=== PATIENT | male | born 1945 | race Caucasian/White ===

== ENCOUNTER 2017-11-12 12:49 | Emergency (ER) | payer MEDICARE, OTHER ==
[~2017-11-12] VITALS: Ht 170.2 cm; Wt 92.5 kg
--- NOTE | 2017-11-12 14:03 | Diagnostic Imaging Report ---
PATIENT HISTORY: Right wrist pain after injury one week ago. Pain in the radial aspect. TECHNIQUE: Three views of the right wrist. COMPARISON: None. FINDINGS: No acute fracture or dislocation is seen in the right wrist. There are moderate degenerative changes at the basal joints of the thumb. A well-corticated ossification is seen distal to the ulnar styloid process, may be from remote trauma. There is 4 mm of positive ulnar variance, otherwise alignment appears normal. Calcific atherosclerosis is noted. IMPRESSION: Chronic findings in the right wrist as described above with no acute osseous abnormality seen. Dictated by: Dictated on workstation # [id number]
--- NOTE | 2017-11-12 14:21 | ED Upper Extremity ---
General Chief Complaint: Upper Extremity Stated Complaint: RT WRIST INJ Nursing Triage Note: ARRIVED VIA AMB TO ROOM 07. COMPLAINS OF RIGHT WRIST PAIN AFTER MOWING LAST WEEK AND A SWING COMING BACK AND HITTING HIM IN THE WRIST. Nursing Sepsis Screen: No Definite Risk History of Present Illness Date Seen by Provider: Nov 12, 2017 Time Seen by Provider: 13:10 Initial Comments 72-year-old male reports that his right wrist was injured a week and a half ago while mowing. He pushed a swing out of the way and it came back and hit him in the right wrist on the volar side. He has intermittent pain in the right wrist and loss of full range of motion to his wrist and hand. He's had no treatment since the injury. He denies any previous history of problems with his right wrist. He is right-hand dominant. Onset: last week Pain/Injury Location: right wrist Method of Injury: direct blow Allergies and Home Medications Patient Home Medication List Home Medication List Reviewed: Yes Constitutional: no symptoms reported, see HPI Musculoskeletal: see HPI, joint pain (right wrist), joint swelling Past Cralomv-Oycghc-Xruqrj Hx Past Med/Social Hx: Reviewed Nursing Past Med/Soc Hx Patient Social History Recent Foreign Travel: No Contact w/Someone Who Travel: No Recent Infectious Disease Expo: No Recent Hopitalizations: No Past Medical History Orthopedic Respiratory: No Cardiac: Yes Heart Attack, Hypertension Neurological: No Genitourinary: Yes Kidney Stones Gastrointestinal: No Musculoskeletal: No Endocrine: No HEENT: No Cancer: No Psychosocial: No Integumentary: No Physical Exam Vital Signs Vital Signs - First Documented 11/12/17 13:05 Temp 98.0 Pulse 80 Resp 16 B/P (MAP) 133/68 (89) Pulse Ox 100 O2 Delivery Room Air Capillary Refill : Less Than 3 Seconds General Appearance: WD/WN, no apparent distress Neck: non-tender, full range of motion, supple, normal inspection Cardiovascular: normal peripheral pulses, regular rate, rhythm Respiratory: chest non-tender, lungs clear, normal breath sounds Wrist: Yes normal inspection, Yes bone tenderness (distal radius), Yes limited ROM (secondary to pain), Yes pain (right wrist), Yes soft tissue tenderness ( right wrist) Neurologic/Psychiatric: no motor/sensory deficits, alert, normal mood/affect, oriented x 3 Progress/Results/Core Measures Results/Orders My Orders Orders - CHILO CHENEY Wrist, Right, 3 Views Or More (11/12/17 13:21) Vital Signs/I&O 11/12/17 11/12/17 13:05 14:25 Temp 98.0 98.0 Pulse 80 80 Resp 16 16 B/P (MAP) 133/68 (89) 133/68 (89) Pulse Ox 100 100 O2 Delivery Room Air Blood Pressure Mean: 89 Progress Progress Note : Time: 13:10 Progress Note Initial evaluation completed, we'll obtain x-ray of the right wrist and then reevaluate. 1420 no fracture or dislocation appreciated. 4 inch Yazan wrap applied. Discharge instructions and return precautions reviewed. Diagnostic Imaging Diagonstic Imaging: Xray Plain Films/CT/US/NM/MRI: other (right wrist) Comments NAME: MALI MACHADO [facility] REC#: [id number] PT STATUS: REG ER : 1945 PHYSICIAN: CHILO CHENEY ADMIT DATE: 11/12/17/ER Draft Date of Exam:11/12/17 WRIST, RIGHT, 3 VIEWS OR MORE PATIENT HISTORY: Right wrist pain after injury one week ago. Pain in the radial aspect. TECHNIQUE: Three views of the right wrist. COMPARISON: None. FINDINGS: No acute fracture or dislocation is seen in the right wrist. There are moderate degenerative changes at the basal joints of the thumb. A well-corticated ossification is seen distal to the ulnar styloid process, may be from remote trauma. There is 4 mm of positive ulnar variance, otherwise alignment appears normal. Calcific atherosclerosis is noted. IMPRESSION: Chronic findings in the right wrist as described above with no acute osseous abnormality seen. Dictated on workstation # [id number] Dict: 11/12/17 1357 Trans: 11/12/17 1403 DEV [id number] Interpreted by: ELIDA ALTMAN MD Electronically signed by: Reviewed: Reviewed by Me Departure Impression Primary Impression: Contusion of right wrist Qualified Codes: S60.211A - Contusion of right wrist, initial encounter Disposition: 01 HOME, SELF-CARE Condition: Improved Departure-Patient Inst. Decision time for Depature: 14:20 Referrals: DIAZ BAEZ DO (PCP/Family) Primary Care Physician Patient Instructions: Contusion (DC), Wrist Sprain (DC) Add. Discharge Instructions: Ice to right wrist 20 minutes every 2 hours while awake. Gentle range of motion to the right wrist. Tylenol 650 mg every 6 hours as needed for pain. Follow-up with your primary care provider if symptoms are not improving or worsen in the next week. Return to the emergency department for new, urgent health care needs. All discharge instructions reviewed with patient and/or family. Voiced understanding. Copy Copies To 1: DIAZ BAEZ AMY ARNP Nov 12, 2017 14:21
[2017-11-12 14:25] VITALS: BP 133/68
== END 2017-11-12 14:25 | disposition home or self-care (01) ==
LOC: ER 12:53
DX: S60.211A Contusion of right wrist, initial encounter (principal); I25.2 Old myocardial infarction; I10 Essential (primary) hypertension; Z87.442 Personal history of urinary calculi; W22.09XA Striking against other stationary object, initial encounter
CPT/HCPCS: 73110

== ENCOUNTER 2018-09-29 08:43 | Emergency (ER) | payer MEDICARE, OTHER ==
[~2018-09-29] VITALS: Ht 170.2 cm; Wt 90.7 kg
[2018-09-29] MEDS ORDERED: GLIP5TAB13 (09:36)
[2018-09-29] MEDS ORDERED: AMLO5TAB9 (09:36)
[2018-09-29] MEDS ORDERED: PIOG45TA65 (09:36)
[2018-09-29] MEDS ORDERED: MAGN250T35 (09:36)
[2018-09-29] MEDS ORDERED: OXYC-471 (09:36)
[2018-09-29] MEDS ORDERED: LISI-552 (09:36)
--- OUTSIDE RECORDS SUMMARY | 2018-09-29 10:04 | XMS REPORT | Continuity of Care Document ---
Author Organization Unknown Address Unknown Allergies There is no data. Medications There is no data. Problems There is no data. Procedures There is no data. Results There is no data. Encounters ACCT No. Visit Date/Time Discharge Status Pt. Type Provider Facility Loc./Unit Complaint [id number] 09/13/2018 13:09:45 09/13/2018 23:59:59 CLS Outpatient
--- NOTE | 2018-09-29 10:19 | NUR ---
FAMILY TO DESK WONDERING HOW MUCH LONGER INFORMED THAT ED IS BUSY AND DR WOULD BE WITH THEM LETICIA.
--- NOTE | 2018-09-29 11:07 | ED Lower Extremity ---
General Chief Complaint: Lower Extremity Stated Complaint: R FOOT PAIN Nursing Triage Note: C/O PAIN IN R ANKLE TRIPPED OVER DOG STAIRS ON SAT. Nursing Sepsis Screen: No Definite Risk Source: patient Exam Limitations: no limitations History of Present Illness Date Seen by Provider: September 29, 2018 Time Seen by Provider: 11:07 Initial Comments 73-year-old male who presents to the emergency room with complaints of right ankle pain after tripping over his dog stairs causing his ankle to twist 5 days ago. He reports pain with ambulation. He does have mild ecchymosis to the right ankle. No swelling. Pain/Injury Location: right ankle Method of Injury: fell Modifying Factors: Worse With Movement Allergies and Home Medications Allergies Coded Allergies: cephalexin (Verified Allergy, Unknown, 09/29/18) Patient Home Medication List Home Medication List Reviewed: Yes Review of Systems Constitutional: see HPI; No chills, No fever Musculoskeletal: see HPI, joint pain (right ankle), joint swelling (right ankle ) All Other Systems Reviewed Negative Unless Noted: Yes Past Fxstpzw-Ogwkli-Lkowxd Hx Past Med/Social Hx: Reviewed Nursing Past Med/Soc Hx Patient Social History Alcohol Use: Occasionally Uses Recreational Drug Use: No Smoking Status: Never a Smoker Recent Foreign Travel: No Contact w/Someone Who Travel: No Recent Infectious Disease Expo: No Recent Hopitalizations: No Past Medical History Surgeries: Yes (KIDNEY STENT) Orthopedic Respiratory: No Cardiac: Yes Heart Attack, Hypertension Neurological: No Genitourinary: Yes Kidney Stones Gastrointestinal: No Musculoskeletal: No Endocrine: No HEENT: No Cancer: No Psychosocial: No Integumentary: No Family Medical History Reviewed Nursing Family Hx Physical Exam Vital Signs Vital Signs - First Documented 09/29/18 09:08 Temp 98.0 Pulse 72 Resp 18 B/P (MAP) 142/77 (98) Pulse Ox 99 O2 Delivery Room Air Capillary Refill : Less Than 3 Seconds Height, Weight, BMI Height: 5'7.00" Weight: 200lbs. oz. 90.090004my; BMI Method:Stated General Appearance: WD/WN, no apparent distress Cardiovascular: normal peripheral pulses, regular rate, rhythm, no edema, no gallop, no JVD, no murmur Respiratory: chest non-tender, lungs clear, normal breath sounds, no respiratory distress, no accessory muscle use Ankles: right ankle ecchymosis, right ankle pain, right ankle swelling Neurologic/Tendon: normal sensation, normal motor functions, normal tendon functions, responds to pain, no evidence tendon injury Neurologic/Psychiatric: alert, normal mood/affect, oriented x 3 Skin: normal color, warm/dry Progress/Results/Core Measures Results/Orders My Orders Orders - JIMMYGILBERT Ankle, Right, 3 Views (09/29/18 11:04) Vital Signs/I&O 09/29/18 09/29/18 09:08 12:14 Temp 98.0 Pulse 72 74 Resp 18 18 B/P (MAP) 142/77 (98) 136/75 (95) Pulse Ox 99 98 O2 Delivery Room Air Room Air Blood Pressure Mean: 98 Diagnostic Imaging Diagonstic Imaging: Xray Plain Films/CT/US/NM/MRI: ankle Comments NAME: MALI MACHADO [facility] REC#: [id number] PT STATUS: DEP ER : 1945 PHYSICIAN: GILBERT MARQUEZ [employer] ADMIT DATE: 09/29/18/ER Signed Date of Exam: 09/29/18 ANKLE, RIGHT, 3 VIEWS CLINICAL INDICATION: Patient complains of injury to right ankle approximately five days ago. Patient has pain in the posterolateral right ankle. EXAM: X-ray of the right ankle, three views. COMPARISON: None. FINDINGS: There is no acute fracture or dislocation. There are chronic post-traumatic changes to the right ankle region. There is a partially visualized intramedullary clarissa within the healed distal tibial fracture. There is also bony spurring of the medial and lateral malleolar regions. There is hypertrophic spurring of the dorsal midfoot. There is enthesopathy or old healed traumatic changes of the base of the fifth metatarsal bone. There are moderately hypertrophic calcaneal spurs at the plantar and Achilles attachments. The ankle mortise and syndesmotic joint show no significant abnormality. There is also some bony thickening appearance of the lateral malleolar region, which may be related to old healed fracture changes. There is a chronic calcification seen posterior to the talus. IMPRESSION: 1: There is no gross evidence of acute fracture of the right ankle. 2: There are old healed post-traumatic changes to the distal tibia, lateral malleolus, and base of the fifth metatarsal bone. 3: There is hypertrophic spurring of the ankle region with the calcaneus and dorsal midfoot affected the most. Dictated by: Dictated on workstation # [id number] Dict: 09/29/18 1145 Trans: 09/29/18 170 Interpreted by: HOMERO ARGUETA MD Electronically signed by: HOMERO ARGUETA MD 09/29/181701 Reviewed: Reviewed by Me Departure Impression Primary Impression: Right ankle sprain Disposition: HOME, SELF-CARE Condition: Stable/Unchanged Departure-Patient Inst. Decision time for Depature: 12:01 Referrals: DIAZ BAEZ DO (PCP/Family) Primary Care Physician Patient Instructions: Ankle Sprain (DC) Add. Discharge Instructions: Ice to the sore areas at 20 minute intervals. You may use ibuprofen and Tylenol as directed by the bottle for pain relief. Rest the ankle as much as possible. Elevate it as much as possible. Yazan bandage as needed for comfort. Follow-up with your primary care provider if no improvement within a week. Return back to the emergency room for worsening symptoms or concerns as needed. All discharge instructions reviewed with patient and/or family. Voiced understanding. GILBERT MARQUEZ September 29, 2018 11:07
--- NOTE | 2018-09-29 11:57 | Diagnostic Imaging Report ---
CLINICAL INDICATION: Patient complains of injury to right ankle approximately five days ago. Patient has pain in the posterolateral right ankle. EXAM: X-ray of the right ankle, three views. COMPARISON: None. FINDINGS: There is no acute fracture or dislocation. There are chronic post-traumatic changes to the right ankle region. There is a partially visualized intramedullary clarissa within the healed distal tibial fracture. There is also bony spurring of the medial and lateral malleolar regions. There is hypertrophic spurring of the dorsal midfoot. There is enthesopathy or old healed traumatic changes of the base of the fifth metatarsal bone. There are moderately hypertrophic calcaneal spurs at the plantar and Achilles attachments. The ankle mortise and syndesmotic joint show no significant abnormality. There is also some bony thickening appearance of the lateral malleolar region, which may be related to old healed fracture changes. There is a chronic calcification seen posterior to the talus. IMPRESSION: 1: There is no gross evidence of acute fracture of the right ankle. 2: There are old healed post-traumatic changes to the distal tibia, lateral malleolus, and base of the fifth metatarsal bone. 3: There is hypertrophic spurring of the ankle region with the calcaneus and dorsal midfoot affected the most. Dictated by: Dictated on workstation # [id number]
[2018-09-29 12:14] VITALS: BP 136/75
--- NOTE | 2018-09-29 12:17 | NUR ---
ADRIANNA WRAP PLACED ON R ANKLE PATIENT INSTRUCTED TO REMOVE AND REAPPLY IF BECOMES TO TIGHT. VOICED UNDERSTANDING.
== END 2018-09-29 12:14 | disposition home or self-care (01) ==
LOC: EDUNIT# 08:43 → ER 08:44
DX: S93.401A Sprain of unspecified ligament of right ankle, initial encounter (principal); I25.2 Old myocardial infarction; I10 Essential (primary) hypertension; Z87.442 Personal history of urinary calculi; Z88.1 Allergy status to other antibiotic agents; Z96.0 Presence of urogenital implants; W01.0XXA Fall on same level from slipping, tripping and stumbling without subsequent striking against object, initial encounter; X50.1XXA Overexertion from prolonged static or awkward postures, initial encounter
CPT/HCPCS: 73610